=== PATIENT | male | born 1940 | race Caucasian/White ===

== ENCOUNTER 2017-07-24 08:00 | Emergency (ER) | payer MEDICARE, OTHER ==
[~2017-07-24] VITALS: Ht 177.8 cm; Wt 87.9 kg
[2017-07-24] MEDS ORDERED: SILVER NITRATE STICK TP ONE ×2 (08:37→09:00)
[2017-07-24] MEDS ORDERED: OXYMETAZOLINE NASAL SPRAY 0.05%, 15ML ONE (08:37)
[2017-07-24] MEDS ORDERED: LIDOCAINE-MPF 1%, 2ML ONE (08:38)
[2017-07-24] MEDS ORDERED: LIDOCAINE-MPF 1%, 5ML INFIL ONE (09:00)
[2017-07-24] MEDS ORDERED: OXYMETAZOLINE NASAL SPRAY 0.05%, 15ML NAS ONE (09:00)
[2017-07-24 09:37] LABS: BASOPHILS # (AUTO) 0.03 x10^3/uL (0-0.1); BASOPHILS % (AUTO) 0 % (0-1); EOSINOPHILS # (AUTO) 0.29 x10^3/uL (0-0.4); EOSINOPHILS % (AUTO) 2 % (1-7); LYMPHOCYTES # (AUTO) 1.41 x10^3/uL (1-3.4); LYMPHOCYTES % (AUTO) 12 % (22-44); MD NO; MEAN CORPUSCULAR HEMOGLOBIN 34.4 pg (27.5-34.5); MEAN CORPUSCULAR HGB CONC 33.6 g/dL (33.2-36.2); MEAN CORPUSCULAR VOLUME 102.5 fL (81-97); MEAN PLATELET VOLUME 7.8 fL (7.4-10.4); MONOCYTES # (AUTO) 0.99 x10^3/uL (0.2-0.8); MONOCYTES % (AUTO) 8 % (2-9); NEUTROPHILS # (AUTO) 9.27 x10^3/uL (1.8-6.8); NEUTROPHILS % (AUTO) 77 % (42-75); PLATELET COUNT 334 x10^3/uL (130-400); RED BLOOD COUNT 4.24 x10^6/uL (4.38-5.82); RED CELL DISTRIBUTION WIDTH 14.2 % (9.4-14.8)
[2017-07-24 11:29] VITALS: BP 129/76
== END 2017-07-24 11:32 | disposition home or self-care (01) ==
LOC: ED 11:06
DX: R04.0 Epistaxis (principal); I10 Essential (primary) hypertension; D68.9 Coagulation defect, unspecified; E78.00 Pure hypercholesterolemia, unspecified; I48.91 Unspecified atrial fibrillation
CPT/HCPCS: 30901; 36415; 85025; 99284